=== PATIENT | female | born 1960 | race Caucasian/White ===

== ENCOUNTER 2017-12-02 01:47 | Emergency (ER) | payer MEDICAID ==
[~2017-12-02] VITALS: Ht 165.1 cm; Wt 85.9 kg
[2017-12-02] MEDS ORDERED: mag hydrox/Alum hydrox/simeth 30ml oral suspension PO ONE (02:00)
[2017-12-02] MEDS ORDERED: metoclopramide 10mg tablet PO ONE (02:00)
[2017-12-02] MEDS ORDERED: famotidine 20mg tablet PO ONE (02:00)
[2017-12-02] MEDS ORDERED: LIDOcaine Viscous 15ml cup MM ONE (02:00)
[2017-12-02 02:32] VITALS: BP 143/99
== END 2017-12-02 02:34 | disposition home or self-care (01) ==
LOC: ER 01:47
DX: K29.00 Acute gastritis without bleeding (principal); K21.9 Gastro-esophageal reflux disease without esophagitis; Z88.8 Allergy status to other drugs, medicaments and biological substances
CPT/HCPCS: 99284; J8597

== ENCOUNTER 2018-04-27 19:08 | Emergency (ER) | payer MEDICAID ==
[~2018-04-27] VITALS: Ht 165.1 cm; Wt 85.9 kg
[2018-04-27 19:14] VITALS: BP 118/76
[2018-04-27] MEDS ORDERED: LIDOcaine 5% patch TP ONE (19:45)
[2018-04-27] MEDS ORDERED: triamcinolone acetonide 40mg/ml inj IM ONE (19:45)
[2018-04-27] MEDS ORDERED: HYDROcodone/acetaminophen 5mg/325mg tablet PO ONE (19:45)
[2018-04-27] MEDS ORDERED: orphenadrine citrate 60mg/2ml inj. IM ONE (19:45)
[2018-04-27] MEDS ORDERED: ondansetron 4mg rapidly disintigrating tab PO ONE (19:45)
[2018-04-27] MEDS ORDERED: CYCL-1 PO (19:53)
[2018-04-27] MEDS ORDERED: LIDO700A32 TOP (19:53)
[2018-04-27] MEDS ORDERED: HYDR-3965 PO (19:53)
== END 2018-04-27 20:12 | disposition home or self-care (01) ==
LOC: ER 19:08
DX: G89.29 Other chronic pain (principal); M54.9 Dorsalgia, unspecified; K21.9 Gastro-esophageal reflux disease without esophagitis; Z88.6 Allergy status to analgesic agent; Z88.8 Allergy status to other drugs, medicaments and biological substances
CPT/HCPCS: 96372; 99284; J2360; J3301

== ENCOUNTER 2018-10-01 09:22 | Outpatient (CLI) | payer MEDICAID ==
[~2018-10-01 09:22] MED LIST: CYCL-1 PO; LIDO700A32 TOP
== END 2018-10-01 23:59 | disposition home or self-care (01) ==
LOC: RAD 09:22
PROVIDERS: ATTEND Psychiatry & Neurology Neurology
DX: G40.909 Epilepsy, unspecified, not intractable, without status epilepticus (principal); R40.4 Transient alteration of awareness; Z87.891 Personal history of nicotine dependence
CPT/HCPCS: 95816

== ENCOUNTER 2018-12-26 16:44 | Emergency (ER) | payer MEDICAID ==
[~2018-12-26] VITALS: Ht 165.1 cm; Wt 87.3 kg
[2018-12-26] MEDS ORDERED: ketorolac tromethamine 15mg/ml inj. IM ONE (17:15)
[2018-12-26] MEDS ORDERED: ketorolac trometh. 30mg/ml inj. IM ONE (17:25)
[2018-12-26] MEDS ORDERED: HYDROcodone/acetaminophen 5mg/325mg tablet PO ONE (18:15)
[2018-12-26] MEDS ORDERED: HYDROmorphone 1 mg/ml syringe IM ONE ×2 (19:45→22:50)
[2018-12-26 20:15] VITALS: BP 143/99
== END 2018-12-26 23:49 | disposition short-term general hospital (02) ==
LOC: ER 16:44
DX: G89.29 Other chronic pain (principal); M54.5 Low back pain; R15.9 Full incontinence of feces; K21.9 Gastro-esophageal reflux disease without esophagitis; Z88.6 Allergy status to analgesic agent; Z88.8 Allergy status to other drugs, medicaments and biological substances; Z79.899 Other long term (current) drug therapy
CPT/HCPCS: 96372; 99285; J1170

== ENCOUNTER 2019-04-23 15:09 | Emergency (ER) | payer MEDICAID ==
[~2019-04-23] VITALS: Ht 165.1 cm; Wt 95.0 kg
[2019-04-23 15:56] LABS: BASOPHILS # (AUTO) 0.1 X10'3 (0-0.2); BASOPHILS % (AUTO) 0.9 % (0-1); EOSINOPHILS # (AUTO) 0.3 X10'3 (0-0.9); HEMATOCRIT 41.3 % (35.0-45.0); LYMPHOCYTES # (AUTO) 1.6 X10'3 (1.1-4.8); MEAN CORPUSCULAR HEMOGLOBIN 30.8 PG (27.0-31.0); MEAN CORPUSCULAR HGB CONC 33.8 g/dL (33.0-36.5); MEAN CORPUSCULAR VOLUME 91.1 FL (78-98); MEAN PLATELET VOLUME 7.1 FL (7.4-10.4); MONOCYTES # (AUTO) 0.4 X10'3 (0-0.9); MONOCYTES % (AUTO) 7.2 % (2-12); NEUTROPHILS # (AUTO) 3.4 X10'3 (1.8-7.7); NEUTROPHILS % (AUTO) 58.9 % (42-75); PLATELET COUNT 196 X10'3 (140-440); RED BLOOD COUNT 4.54 X10'6 (4.20-5.60); RED CELL DISTRIBUTION WIDTH 14.1 % (11.5-14.5); WHITE BLOOD COUNT 5.8 X10'3 (4.5-11.0)
[2019-04-23 16:12] LABS: ALANINE AMINOTRANSFERASE 76 U/L (12-78); ALBUMIN/GLOBULIN RATIO 1.1 (1.1-1.5); ALKALINE PHOSPHATASE 59 IU/L (46-116); ANION GAP 9 (8-16); ASPARTATE AMINO TRANSFERASE 42 U/L (10-37); BILIRUBIN,TOTAL 0.4 MG/DL (0.1-1.0); BLOOD UREA NITROGEN 12 MG/DL (7-18); BUN/CREATININE RATIO 13.5 (6.6-38.0); CALCIUM 9.8 MG/DL (8.5-10.1); CHLORIDE 107 MMOL/L (99-107); CREATININE 0.89 MG/DL (0.40-0.90); GLUCOSE 95 MG/DL (70-104); SODIUM 145 MMOL/L (135-145); TOTAL CARBON DIOXIDE 28.6 MMOL/L (24-32); TOTAL PROTEIN 7.5 G/DL (6.4-8.2); eGFR 65 ML/MIN
[2019-04-23 16:54] VITALS: BP 126/76
[2019-04-23] MEDS ORDERED: POTA20TA19 PO (16:58)
[2019-04-23] MEDS ORDERED: FURO-150 PO (16:58)
[2019-04-23] MEDS ORDERED: proCHLORperazine 10 MG/2 ml inj IM ONE (17:05)
== END 2019-04-23 17:16 | disposition home or self-care (01) ==
LOC: ER 15:09
DX: R60.0 Localized edema (principal); J44.9 Chronic obstructive pulmonary disease, unspecified; K21.9 Gastro-esophageal reflux disease without esophagitis; G89.29 Other chronic pain; Z88.6 Allergy status to analgesic agent; Z88.8 Allergy status to other drugs, medicaments and biological substances; Z79.899 Other long term (current) drug therapy
CPT/HCPCS: 36415; 71045; 80053; 83880; 84484; 85025; 93005; 96372; 99285; J0780

== ENCOUNTER 2019-05-23 13:56 | Emergency (ER) | payer MEDICAID ==
[~2019-05-23] VITALS: Ht 165.1 cm; Wt 93.0 kg
[~2019-05-23 13:56] MED LIST changes: +FURO-150 PO; +POTA20TA19 PO
[2019-05-23 14:18] LABS: BASOPHILS # (AUTO) 0.1 X10'3 (0-0.2); EOSINOPHILS # (AUTO) 0.6 X10'3 (0-0.9); LYMPHOCYTES # (AUTO) 1.7 X10'3 (1.1-4.8); MEAN CORPUSCULAR HEMOGLOBIN 30.6 PG (27.0-31.0); RED CELL DISTRIBUTION WIDTH 13.8 % (11.5-14.5)
[2019-05-23 14:20] LABS: EOSINOPHILS % (AUTO) 8.4 % (0-6); HEMATOCRIT 43.5 % (35.0-45.0); HEMOGLOBIN 14.6 g/dl (12.0-16.0); LYMPHOCYTES % (AUTO) 23.6 % (21-51); MEAN CORPUSCULAR HGB CONC 33.6 g/dL (33.0-36.5); MEAN CORPUSCULAR VOLUME 90.9 FL (78-98); MEAN PLATELET VOLUME 8.1 FL (7.4-10.4); MONOCYTES # (AUTO) 0.5 X10'3 (0-0.9); MONOCYTES % (AUTO) 7.5 % (2-12); NEUTROPHILS # (AUTO) 4.3 X10'3 (1.8-7.7); NEUTROPHILS % (AUTO) 59.5 % (42-75); PLATELET COUNT 192 X10'3 (140-440); RED BLOOD COUNT 4.78 X10'6 (4.20-5.60); WHITE BLOOD COUNT 7.3 X10'3 (4.5-11.0)
[2019-05-23 14:31] LABS: ALANINE AMINOTRANSFERASE 82 U/L (12-78); ALBUMIN 3.9 G/DL (3.4-5.0); ALBUMIN/GLOBULIN RATIO 1.1 (1.1-1.5); ALKALINE PHOSPHATASE 64 IU/L (46-116); ANION GAP 6 (8-16); ASPARTATE AMINO TRANSFERASE 42 U/L (10-37); BILIRUBIN,TOTAL 0.3 MG/DL (0.1-1.0); BLOOD UREA NITROGEN 20 MG/DL (7-18); BUN/CREATININE RATIO 22.5 (6.6-38.0); CALCIUM 9.5 MG/DL (8.5-10.1); CHLORIDE 103 MMOL/L (99-107); CREATININE 0.89 MG/DL (0.40-0.90); GLUCOSE 112 MG/DL (70-104); POTASSIUM 4.3 MMOL/L (3.5-5.1); SODIUM 138 MMOL/L (135-145); TOTAL CARBON DIOXIDE 28.9 MMOL/L (24-32); TOTAL PROTEIN 7.6 G/DL (6.4-8.2); eGFR 65 ML/MIN
[2019-05-23] MEDS ORDERED: PRED20TA PO (15:01)
[2019-05-23 15:06] VITALS: BP 114/66
== END 2019-05-23 15:19 | disposition home or self-care (01) ==
LOC: ER 13:56
DX: J40 Bronchitis, not specified as acute or chronic (principal); J44.9 Chronic obstructive pulmonary disease, unspecified; K21.9 Gastro-esophageal reflux disease without esophagitis; G89.29 Other chronic pain; Z88.8 Allergy status to other drugs, medicaments and biological substances; Z88.6 Allergy status to analgesic agent; Z79.4 Long term (current) use of insulin; Z79.899 Other long term (current) drug therapy
CPT/HCPCS: 36415; 71045; 80053; 83880; 84484; 85025; 93005; 99285

== ENCOUNTER 2019-07-10 01:19 | Emergency (ER) | payer MEDICAID ==
[~2019-07-10] VITALS: Ht 165.1 cm; Wt 91.7 kg
[~2019-07-10 01:19] MED LIST changes: -FURO-150 PO; -POTA20TA19 PO
[2019-07-10 01:23] VITALS: BP 141/77
[2019-07-10] MEDS ORDERED: ondansetron 4mg rapidly disintigrating tab PO ONE (01:50)
[2019-07-10] MEDS ORDERED: morphine 4 MG/ML inj SYRINge IM ONE (01:50)
== END 2019-07-10 02:05 | disposition home or self-care (01) ==
LOC: ER 01:20
DX: M79.602 Pain in left arm (principal); R20.2 Paresthesia of skin; J44.9 Chronic obstructive pulmonary disease, unspecified; K21.9 Gastro-esophageal reflux disease without esophagitis; G89.29 Other chronic pain; Z88.8 Allergy status to other drugs, medicaments and biological substances; Z79.899 Other long term (current) drug therapy; W18.39XA Other fall on same level, initial encounter; Y93.89 Activity, other specified; Y92.89 Other specified places as the place of occurrence of the external cause; Y99.8 Other external cause status
CPT/HCPCS: 96372; 99283; J2270

== ENCOUNTER 2020-06-17 12:28 | Emergency (ER) | payer MEDICAID ==
[~2020-06-17] VITALS: Ht 165.1 cm; Wt 91.9 kg
[2020-06-17 12:45] VITALS: BP 134/82
[2020-06-17] MEDS ORDERED: proparacaine 0.5% ophthalmic drops 15ml LEFTEYE ONE (14:15)
[2020-06-17] MEDS ORDERED: CEPH500C2 PO (15:02)
[2020-06-17] MEDS ORDERED: ERYT1OIN6 LEFTEYE (15:02)
== END 2020-06-17 15:10 | disposition home or self-care (01) ==
LOC: ER 12:29
DX: H00.034 Abscess of left upper eyelid (principal); J44.9 Chronic obstructive pulmonary disease, unspecified; K21.9 Gastro-esophageal reflux disease without esophagitis; G89.29 Other chronic pain; Z72.89 Other problems related to lifestyle; Z88.8 Allergy status to other drugs, medicaments and biological substances; Z79.899 Other long term (current) drug therapy
CPT/HCPCS: 99283

== ENCOUNTER 2021-12-10 06:01 | Day surgery (SDC) | payer MEDICAID ==
[2021-12-03 10:26] LABS: BASOPHILS % (AUTO) 0.7 % (0-1); EOSINOPHILS # (AUTO) 0.5 X10'3 (0-0.9); EOSINOPHILS % (AUTO) 6.5 % (0-6); LYMPHOCYTES # (AUTO) 1.8 X10'3 (1.1-4.8); LYMPHOCYTES % (AUTO) 25.5 % (21-51); MEAN CORPUSCULAR HGB CONC 32.5 g/dL (33.0-36.5); MEAN CORPUSCULAR VOLUME 89.2 FL (78-98); MEAN PLATELET VOLUME 7.9 FL (7.4-10.4); MONOCYTES # (AUTO) 0.6 X10'3 (0-0.9); MONOCYTES % (AUTO) 7.9 % (2-12); NEUTROPHILS # (AUTO) 4.3 X10'3 (1.8-7.7); NEUTROPHILS % (AUTO) 59.4 % (42-75); PRE OP HEMATOCRIT 43.1 % (35.0-45.0); PRE OP PLATELET COUNT 223 X10'3 (140-440); RED BLOOD COUNT 4.84 X10'6 (4.20-5.60)
[2021-12-03 10:48] LABS: ALBUMIN 3.8 G/DL (3.4-5.0); ALBUMIN/GLOBULIN RATIO 0.9 (1.1-1.5); ALKALINE PHOSPHATASE 77 IU/L (46-116); BLOOD UREA NITROGEN 17 MG/DL (7-18); BUN/CREATININE RATIO 18.9 (6.6-38.0); CALCIUM 9.1 MG/DL (8.5-10.1); CHLORIDE 103 MMOL/L (99-107); PRE OP ALT 62 U/L (30-65); PRE OP ANION GAP 7 (8-16); PRE OP AST 53 U/L (10-37); PRE OP BILIRUB, TOTAL 0.5 MG/DL (0.0-1.0); PRE OP GLUCOSE 106 MG/DL (70-104); PRE OP SODIUM 139 MMOL/L (135-145); TOTAL CARBON DIOXIDE 29.5 MMOL/L (24-32); TOTAL PROTEIN 7.9 G/DL (6.4-8.2); eGFR 64 ML/MIN
[~2021-12-10] VITALS: Ht 165.1 cm; Wt 89.4 kg
[2021-12-10] VITALS (11 sets, daily range): BP systolic 89–110; BP diastolic 59–77
[~2021-12-10 06:01] MED LIST changes: +AMLO-708 PO; +ATOR40TA72 PO; +CHOL20002 PO; -CYCL-1 PO; +GABA300C PO; +LEVE750T PO; +LEVO25TA7 PO; -LIDO700A32 TOP; +LOSA100T57 PO; +PANT40TA54 PO; +SERT-434 PO; +TRIA1CAP88 PO; +ceFAZolin inj. 2,000 MG in dextrose 5%-water 100 ML IV ONE; +famotidine 20mg tablet PO ONE; +ringers solution, lacted 1,000 ML IV SCH
[2021-12-10] MEDS ORDERED: LIDOcaine 1% 30ml preserv. free vial ONE (07:01)
[2021-12-10] MEDS ORDERED: MIDAZolam 1 MG/ML 5ML VIAL ONE (09:23)
[2021-12-10] MEDS ORDERED: fentaNYL/PF 50MCG/1 ML 2ML syringe ONE (09:23)
[2021-12-10] MEDS ORDERED: ketorolac trometh. 30mg/ml inj. ONE (09:34)
[2021-12-10] MEDS ORDERED: BUPIVAcaine/PF 2.5 mg/ml (0.25%) 30ml vial ONE (09:37)
--- NOTE | 2021-12-10 09:58 | NUR ---
Received from OR via [facility], accompanied by Anesthesiologist DR. BAER and report given by Anesthesiologist AND OR NURSE. PATIENT DROWSY ON 4L NC, NO S/S OF PAIN, V/S WNL, 20G TO RAC, LEFT WRIST DRESSING AND ELBOW DRESSING CDI. ICE APPLIED AND LEFT ARM ELEVATED. WILL CONTINUE TO MONITOR. Addendum: 12/10/21 at 1008 by Rosa Bowser RN Amended: Links added.
--- NOTE | 2021-12-10 11:28 | NUR ---
PATIENT A&OX4, DENIES PAIN, V/S WNL, 20G TO RAC D/C, LEFT WRIST AND ELBOW DRESSING CDI. LEFT ARM ICE AND ELEVATED. I HAVE REVIEWED D/C INSTRUCTIONS WITH PATIENT and SHE HAS verbalized understanding patient d/c home with all belongings and family gave transport home. Addendum: 12/10/21 at 1134 by Rosa Bowser RN Amended: Links added.
== END 2021-12-10 11:28 | disposition home or self-care (01) ==
LOC: PAS 06:01
PROVIDERS: ATTEND Orthopaedic Surgery Hand Surgery
DX: G56.02 Carpal tunnel syndrome, left upper limb (principal); G56.22 Lesion of ulnar nerve, left upper limb; J44.9 Chronic obstructive pulmonary disease, unspecified; E03.9 Hypothyroidism, unspecified; M19.90 Unspecified osteoarthritis, unspecified site; K21.9 Gastro-esophageal reflux disease without esophagitis; F41.9 Anxiety disorder, unspecified; Z90.710 Acquired absence of both cervix and uterus; Z79.899 Other long term (current) drug therapy; Z98.890 Other specified postprocedural states; Z20.822 Contact with and (suspected) exposure to COVID-19; Z90.49 Acquired absence of other specified parts of digestive tract; Z87.891 Personal history of nicotine dependence
CPT/HCPCS: 36415; 64718; 64721; 80053; 82948; 85025; 87811; 93005; J0690; J1885; J2250; J3010; J3490; J7030; J7060; J7120; Z7506; Z7512; A4215; A6449